=== PATIENT | female | born 1945 | race Caucasian/White ===

== ENCOUNTER 2017-03-19 17:28 | Inpatient (IN) ==
[2017-03-19] MEDS ORDERED: MEFOXIN 2 GM/NS 2 GM/50 ML IVPB IV ONE (22:00)
--- NOTE | 2017-03-19 22:14 | HISTORY AND PHYSICAL ---
ADMITTING DIAGNOSIS: Right diaphragmatic hernia. HISTORY OF PRESENT ILLNESS: A 71-year-old female with a past medical history include hypertension, chronic anxiety, chronic lower back pain, Crohn's disease, insomnia, osteoarthritis who had been at [facility] for several days with complaint of abdominal pain. She also had a persistent cough. She had difficulty with bowel movements and felt that she might have a bowel obstruction. During her workup, she did have a CT scan that showed a right diaphragmatic hernia that contained potentially incarcerated colon. Given this, it was felt the patient should be transferred to [facility]. I did discuss her care with Dr. Miguel schafer who had been taking care of the patient. He felt as though she was a reasonable surgical candidate and that she could be safely transferred for surgical intervention. The patient right now is feeling better, but having shortness of breath. PAST MEDICAL HISTORY: Hypertension, chronic anxiety, chronic lower back pain, Crohn's disease, insomnia, osteoarthritis. PAST SURGICAL HISTORY: Left ovary removal. Pelvic repair with mesh in the bladder x2. Lumbar fusion. CURRENT MEDICATIONS: Reviewed from her note from another facility. It is noted that she is on prednisone. ALLERGIES: Sulfa, morphine and latex. SOCIAL HISTORY: Nonsmoker. FAMILY HISTORY: Positive for stroke and pneumonia. REVIEW OF SYSTEMS: A full 10 point review of systems obtained, negative except as specified in HPI. PHYSICAL EXAMINATION: VITAL SIGNS: Patient is currently afebrile. Her vital signs have been stable. She is on a face mask, but saturations 99%. GENERAL: No acute distress. female, looks stated age. HEENT: Normocephalic, atraumatic. Pupils equal, round, reactive to light. Mucous membranes moist. Oropharynx benign. NECK: Supple. Trachea midline. CARDIOVASCULAR: Regular rate and rhythm. LUNGS: Some decreased breath sounds on the right. ABDOMEN: Soft, nontender, nondistended. No skin changes. EXTREMITIES: Moves all extremities. SKIN: No signs of jaundice. VASCULAR: All extremities perfused. NEUROLOGIC: Grossly intact. LABORATORY: From her hospital stay at the other facility reviewed. CT scan from the other facility reviewed and noted above. ASSESSMENT/PLAN: A 71-year-old female with right diaphragmatic hernia. 1. Multiple medical comorbidities. At this time, we will watch her closely. I will consult the hospitalist for medical management. 2. Right diaphragmatic hernia. At this time, given her respiratory status, we will plan for surgical intervention. Discussed with patient the risks, benefits, alternatives for the procedure. Discussed with her that we would have to do an open procedure to repair the diaphragm, that there is a chance she might need a chest tube on the right side. Discussed the potential for her to remain intubated postoperatively. All questions were answered. She voiced understanding and wished to proceed with the procedure. She does once off to her bath steward. cc: Gabriel Anna MD
[2017-03-19] MEDS ORDERED: MARCAINE 0.25% PF ONE (23:15)
[2017-03-19] MEDS ORDERED: SODIUM CHLORIDE 0.9% 10 ML ONE (23:15)
[2017-03-19] MEDS ORDERED: EXPAREL 1.3% ONE (23:15)
[2017-03-19] MEDS ORDERED: SOLU-CORTEF ONE (23:17)
[2017-03-19] MEDS ORDERED: PEPCID ONE (23:17)
[2017-03-20 00:43] LABS: URINE SOURCE CATH
[2017-03-20 00:53] LABS: BILIRUBIN URINE NEGATIVE (NEGATIVE); BLOOD URINE TRACE (NEGATIVE); COLOR STRAW; GLUCOSE URINE 150 mg/dL (NEGATIVE); LEUKOCYTES URINE NEGATIVE (NEGATIVE); NITRITE URINE NEGATIVE (NEGATIVE); PH URINE 6.5; PROTEIN URINE TRACE mg/dL (NEGATIVE); SP GRAVITY URINE 1.011; TURBIDITY URINE CLEAR (CLEAR); UROBILINOGEN URINE NORMAL (NORMAL)
[2017-03-20 00:54] LABS: URINE MICRO REVIEW NEEDED? YES
[2017-03-20 00:59] LABS: UR EPITHELIAL CELLS <10 /HPF (<10); URINE BACTERIA NEGATIVE /HPF; URINE WBC <10 /HPF (<10)
[2017-03-20] MEDS ORDERED: DIPRIVAN 1% 1,000 MG/100 ML BOTTLE ONE ×2 (01:30)
[2017-03-20] MEDS: DIPRIVAN 1% 1,000 MG/100 ML BOTTLE IV SCH ×3 (01:45→09:38)
[2017-03-20] MEDS ORDERED: VERSED ONE (01:53)
[2017-03-20] MEDS ORDERED: KETAMINE (DOSE) ONE (01:54)
[2017-03-20 03:17] LABS: BASO% 0.4 % (0.0-0.8); HEMATOCRIT 39.4 % (37.0-47.0); HEMOGLOBIN 13.1 g/dL (12.0-16.0); IMM GRAN# 0.16 X1000 (0.0-0.04); IMM GRAN% 0.8 % (0.0-0.5); LYMPH# 0.74 X1000 (1.2-3.4); LYMPH% 3.6 % (20.5-51.1); MANUAL DIFF NEEDED? YES; MCHC 33.2 g/dL (33-37); MCV 90.4 FL (81-99); MONO# 3.33 X1000 (0.11-0.59); MONO% 16.2 % (1.7-9.3); MPV 8.9 FL (7.4-10.4); PLT 397 X1000 (130-400); RBC 4.36 XMIL (4.2-5.4)
[2017-03-20 03:41] LABS: LYMPHS 2 % (21-51); MONO 6 % (1-9)
--- NOTE | 2017-03-20 03:43 | OPERATIVE NOTE ---
PROCEDURE DATE: 03/19/2017 PREOPERATIVE DIAGNOSES: 1. Incarcerated, strangulated right diaphragmatic hernia. 2. Right pleural effusion. POSTOPERATIVE DIAGNOSES: 1. Incarcerated, strangulated right diaphragmatic hernia. 2. Right pleural effusion. PROCEDURE PERFORMED: 1. Exploratory laparotomy. 2. Reduction of diaphragmatic hernia. 3. Colorrhaphy. 4. Primary repair of diaphragmatic hernia (incarcerated, strangulated). 5. Partial omentectomy. 6. Right chest tube placement (24-Togolese). SURGEON: Dr. Gabriel Anna. EAR MUFF ASSEMBLER: None. ANESTHESIA: General endotracheal. ESTIMATED BLOOD LOSS: 25 mL. SPECIMENS REMOVED: Omentum. DRAINS: A 24-Togolese chest tube to the right chest. FINDINGS: There was a 3 cm defect that contained the hepatic flexure of the colon. There was strangulated omentum that was noted in the hernia but the bowel itself was viable except for 1 little small edge which had a small serosal injury which was repaired with a colorrhaphy. BRIEF HISTORY: The patient is a 71-year-old, female presenting with abdominal pain and right shoulder pain, and a bowel obstruction. She was evaluated by her primary care physician, had a CT scan that showed this hernia. She was transferred over to [facility] for definitive care. Evaluated the patient. I felt that repair would be best. She did have worsening respiratory status. [place] again that operative repair would be the best thing for the patient. The risks, benefits, and alternatives were discussed. All questions were answered. DESCRIPTION OF PROCEDURE: After informed consent was obtained, the patient was brought to the operative theatre, transferred to the operating table, and placed in the supine position. General endotracheal anesthesia was then performed without complication. A formal time- out was then performed, confirming patient, date, and procedure. All were in agreement. The abdomen and chest were both prepped out. After we did this, we made a standard upper midline incision to encounter the abdomen. Upon entering the abdomen, we found the hernia and the diaphragm on the right side. The colon itself was traveling anterior to the liver to be incorporated this hernia. It was significantly stuck in this area. We had to increase the size of the hernia on either side to allow reduction of the contents. Once we reduced it, we noticed that there was omentum in the area that was strangulated. We elected to remove this with electrocautery. We did have to take down the triangular ligament and the falciform ligament to accommodate the reduction. There was a significant amount of serosanguineous fluid that was evacuated from the chest. We were able to feel the heart and the lung. We examined the colon. There was a small area with bruising on the serosa that we elected to do a colorrhaphy on. We did this with interrupted silk stitches with good results. There bowel itself appeared to be very viable. Again, the only area that was strangulated with the omentum which we resected. We irrigated the abdomen copiously. We turned our attention to closing the defect. We used 0 PDS sutures and closed it with horizontal mattresses. We had a good reapproximation. We also placed the liver abutting up against this area to heal with closure. We placed the colon in an area not let it to be involved again in a recurrence. We irrigated the abdomen copiously. Closed the fascia with a running loop PDS and neva for the skin. We then turned our attention to the right chest which had been previously marked with the patient in preoperative holding. In the anterior axillary line at the 5th intercostal space, we made a small incision. Carried it to the subcutaneous tissue. We entered into the chest above the 5th intercostal rib. We encountered some fluid. We placed a 24-Togolese chest tube. We directed as best we could posteriorly and anteriorly. We drained at least 200 of fluid out immediately once placing it to suction. We secured it in place with silk stitches on either side, placed a sterile dressing. Given the timing of the procedure, the patient's overall clinical status, we elected to keep the patient intubated and transferred her to the ICU. Postoperatively, we will keep the chest tube to suction overnight, get a chest x -ray, and evaluate her pulmonary status in the morning for potential extubation. cc: MD ELLY Randolph
[2017-03-20 03:59] LABS: AGAP 23; BUN 7 mg/dL (8-22); CHLORIDE 91 mmol/L (98-107); COSMO 266; POTASSIUM 3.3 mmol/L (3.5-5.1); SODIUM 132 mmol/L (136-145); TCO2 18 mmol/L (25-35)
[2017-03-20] MEDS: LR 1,000 ML IV SCH ×2 (04:23→16:21)
[2017-03-20 04:47] LABS: ALLEN TEST YES; BE -0.7 mmoll (-3.0-3.0); BLOOD TYPE ARTERIAL; METHB 0.5 % (0.0-1.5); O2(CT) 20.6 mL/dL (15.0-23.0); PCO2(98.6) 40 mmHg (35-45); PO2(98.6) 234 mmHg (60-100); SAMPLE BLOOD; SAO2 97.8 % (95.0-100.0); SRATE 9 BPM; THB 14.7 g/dL (11.5-17.4); TVOL 500 mL; pH(98.6) 7.39 (7.35-7.45)
[2017-03-20 04:50] LABS: MODALITY VENTILATOR
[2017-03-20 06:17] LABS: DRAW SITE R RADIAL
--- NOTE | 2017-03-20 07:07 | PROGRESS NOTE ---
DATE: 03/20/2017 SUBJECTIVE: Patient doing okay since the operation. No major issues reported by the nursing staff. OBJECTIVE: Vital Signs: Patient is currently afebrile. Her vital signs have been stable. She is still on the ventilator. General Examination: Sedated, on the ventilator. Cardiovascular: Regular rate and rhythm. Lungs: Referred airway noises but she does have airways on the right side. Abdomen: Soft and nondistended. Appropriately dressed with a dry dressing in place. Air sounds on the right side of the abdomen. Soft, nondistended. Dressing in place. Laboratory: White blood cell count is 20, hematocrit 39. ABG reviewed. Electrolytes reviewed. Chest x-ray from earlier this morning reviewed. ASSESSMENT/PLAN: A 71-year-old, female, status post repair of incarcerated strangulated diaphragmatic hernia on the right. 1. Postoperative state. At this time, patient is on the ventilator with a chest tube on the right side. Dr. Badillo has been consulted for ventilator management. I suspect that if she does not get extubated today, we will need to place a nasogastric tube to decompress her stomach. If she is extubated, we can hold off. 2. History of Crohn's. At this time, the patient to get a stress dose of steroids. She will likely need to continue steroids but we will defer to Dr. Bowens who is going to see her, who has been consulted to see her today and the hospitalist service. 3. Multiple medical comorbidities, currently being managed by the hospitalist service. 4. At this time, I think the patient is doing relatively well all things considered. I will help keep the chest tube in place to decompress her right chest after the procedure. We are going to monitor her closely. If she has any changes, we may need to consider increasing her steroid dose. cc: MD ELLY Randolph
--- NOTE | 2017-03-20 07:25 | Diag Imaging Result Doc PS360 ---
EXAM: CHEST-PORTABLE HISTORY: post -op, vent, chest tube TECHNIQUE: AP supine portable at 0150 COMMENT: There is atelectasis in the left upper lobe and to lesser extent in the medial right base which was not present on 06/10/2015. There is a chest tube on the right and an endotracheal tube with its tip slightly below the thoracic inlet. There is no evidence of pneumothorax or significant pleural fluid collection. IMPRESSION: Left upper lobe and right lower lobe atelectasis. Electronically signed by Nitesh Lyons 03/20/2017 7:22 AM
[2017-03-20 08:01] LABS: AGAP 17; ALBUMIN 3.1 g/dL (3.5-5.0); ALKALINE PHOSPHATASE 73 U/L (32-104); BUN 8 mg/dL (8-22); CALCIUM 7.4 mg/dL (8.8-10.2); CHLORIDE 94 mmol/L (98-107); COSMO 269; GOT 57 U/L (10-30); GPT 28 U/L (10-36); HEMATOCRIT 33.1 % (37.0-47.0); HEMOGLOBIN 10.9 g/dL (12.0-16.0); MAGNESIUM 1.7 mg/dL (1.5-2.7); MCH 29.4 PG (27-31); MCHC 32.9 g/dL (33-37); MCV 89.2 FL (81-99); MPV 9.2 FL (7.4-10.4); POTASSIUM 2.9 mmol/L (3.5-5.1); RBC 3.71 XMIL (4.2-5.4); SODIUM 134 mmol/L (136-145); TCO2 23 mmol/L (25-35)
[2017-03-20] MEDS: SOLU-CORTEF IV SCH ×2 (08:17→16:22)
[2017-03-20] MEDS: PEPCID IV SCH ×2 (08:17→20:47)
[2017-03-20] MEDS: SODIUM CHLORIDE 0.9% 10 ML ONE (08:18)
[2017-03-20] MEDS: DILAUDID IV PRN ×5 (08:19→22:32)
[2017-03-20] MEDS ORDERED: POTASSIUM PHOSPHATE 30 MMOL in NS 250 ML IV ONE (09:30)
[2017-03-20] MEDS ORDERED: ATIVAN IV PRN (10:00)
[2017-03-20] MEDS ORDERED: XYLOCAINE-MPF 2% ONE (10:17)
[2017-03-20] MEDS ORDERED: NEOSTIGMINE ONE (10:17)
[2017-03-20] MEDS ORDERED: OFIRMEV 1000 MG/ISOTONIC SOLN 1,000 MG/100 ML BOTTLE ONE (10:17)
[2017-03-20] MEDS ORDERED: ROBINUL ONE (10:17)
[2017-03-20] MEDS ORDERED: ZOFRAN ONE (10:17)
[2017-03-20] MEDS ORDERED: VENTOLIN HFA ONE (10:17)
[2017-03-20] MEDS ORDERED: SODIUM CHLORIDE 0.9% 40 ML ONE (10:17)
[2017-03-20] MEDS ORDERED: DECADRON ONE (10:17)
[2017-03-20] MEDS ORDERED: QUELICIN (DOSE) ONE (10:17)
[2017-03-20] MEDS ORDERED: NORCURON ONE (10:17)
[2017-03-20] MEDS ORDERED: NEO-SYNEPHRINE ONE (10:17)
[2017-03-20] MEDS ORDERED: ZEMURON ONE (10:17)
[2017-03-20] MEDS ORDERED: NS 500 ML ONE (10:17)
[2017-03-20] MEDS ORDERED: SOLU-CORTEF ONE (10:17)
[2017-03-20] MEDS ORDERED: LR 2,000 ML ONE (10:17)
[2017-03-20] MEDS: ZOSYN 3.375 GM/NS 3.375 GM/50 ML IVPB IV SCH ×3 (10:17→21:49)
[2017-03-20 10:48] LABS: ALLEN TEST NO; BE 3.5 mmoll (-3.0-3.0); BLOOD TYPE ARTERIAL; DRAW SITE R BRACHIAL; METHB 0.8 % (0.0-1.5); O2(CT) 15.3 mL/dL (15.0-23.0); PCO2(98.6) 29 mmHg (35-45); PO2(98.6) 118 mmHg (60-100); SAMPLE BLOOD; SAO2 97.1 % (95.0-100.0); THB 11.2 g/dL (11.5-17.4); pH(98.6) 7.55 (7.35-7.45)
[2017-03-20 10:50] LABS: MODALITY VENTILATOR
[2017-03-20] MEDS: HEPARIN SUBQ SCH ×2 (12:19→20:06)
--- NOTE | 2017-03-20 14:32 | CONSULTATION ---
DATE OF CONSULTATION: 03/20/2017 CONSULTING PHYSICIAN: Dr. Gabriel Anna. CONSULTING REASON: Medical management. HISTORY OF PRESENT ILLNESS: Mrs. Jang is a 71-year-old female with a history of hypertension, Crohn disease, chronic pain and insomnia who was transferred from [facility] with multiple days of abdominal pain, ultimately found to have a incarcerated diaphragmatic hernia. She was transferred to our facility for surgical treatment. Dr. Anna performed an exploratory laparotomy with corraphy early this morning. She is currently intubated in the ICU resting comfortably in no distress. She was also noted to have a large pleural effusion requiring chest tube insertion. Labs this morning did show some leukocytosis, but she is is on steroids at home. We have been asked to follow along for medical management. PAST MEDICAL HISTORY: 1. Anxiety. 2. Chronic pain. 3. Crohn disease. 4. Insomnia. 5. Osteoarthritis. 6. Hypertension. 7. Chronic steroid use. PAST SURGICAL HISTORY: Left oophorectomy, lumbar spine fusion, pelvic repair with mesh. CURRENT MEDICATIONS: Reviewed please see MAR. ALLERGIES: To sulfa, morphine and latex. SOCIAL HISTORY: No history of tobacco, alcohol or drug use. FAMILY HISTORY: Noncontributory. REVIEW OF SYSTEMS: Unable to obtain secondary to neurologic status (intubated and sedated). PHYSICAL EXAMINATION: Vital Signs: Blood pressure is 119/62, heart rate 77, respiratory rate 13, O2 saturation 100% on mechanical ventilation, temperature 97.3 degrees. General : A well- developed, well-nourished, female lying in hospital bed in no acute distress, intubated and sedated. Neurologic: The patient is intubated and sedated on propofol. HEENT: Head is atraumatic. Her pupils are equal, round, reactive to light. Oral mucosa is moist. Trachea is midline. No JVD. Chest: Diminished in the right lung base otherwise clear to auscultation bilaterally. CV: Regular rate and rhythm. S1-S2 is noted. No murmurs, gallops, clicks, rubs. GI: Midline incision with occlusive dressing that is clean, dry and intact. Bowel sounds are hypoactive, belly is slightly distended but soft. Extremities: No edema, clubbing or cyanosis. Pulses diminished but palpable bilaterally. DIAGNOSTIC DATA: WBC 18.9, hemoglobin 10.9, hematocrit 33.1, platelet count 450 ,000. Sodium 134, potassium 2.9, chloride 94, CO2 23, anion gap 17, BUN 8, creatinine 0.4, glucose 150, calcium 7.4, phosphorus 1.8, magnesium 1.7, AST 57, ALT 28, alkaline phosphatase 73, protein 6, albumin 3.1, lactate 1. ASSESSMENT AND PLAN: 1. Incarcerated diaphragmatic hernia status post repair: Per Dr. Anna and his team. Continue aggressive pulmonary toilet, DVT prophylaxis and pain control. 2. Pleural effusion status post chest tube: Currently stable, Dr. Badillo from pulmonary has been consulted. We will order daily ABGs and chest x-rays, currently her ABG is stable. She should be extubated soon. 3. Respiratory failure on ventilation: Per Dr. Badillo, continue breathing treatments and aggressive pulmonary toilet. 4. Leukocytosis: Likely reactive secondary to steroids. However, given intraabdominal surgery will obtain blood cultures and start Zosyn. 5. Hypokalemia/phosphatemia: Replace with Kphos and monitor. 6. H/o Crohn's Disease: We will add stress dosing of steroids as she is on chronic steroids at home. 6. Anxiety: Will continue her benzodiazepines. 7. Hypertension: Chronic and stable, continue home medications. 8. Deep vein thrombosis prophylaxis per surgical team. Gastrointestinal prophylaxis with IV Protonix. We would like to thank you for this consultation. We will continue to follow along with you. Dictated by LAMONT Banegas for Franny Conrad MD cc: LAMONT Banegas MD Matthew L. Figh, MD [facility] HOSPITALCharlie
--- NOTE | 2017-03-20 14:34 | CONSULTATION ---
DATE OF CONSULTATION: 03/20/2017 REQUESTING PHYSICIAN: Dr. Gabriel Anna. REASON FOR CONSULTATION: Respiratory failure following surgical procedure. HISTORY OF PRESENT ILLNESS: Ms. Jang is a 71-year-old white female, nonsmoker by nursing intake, possible mild COPD with history of Crohn disease. The patient was admitted to an outside hospital with abdominal pain. CT scan suggested diaphragmatic hernia with incarcerated bowel. The patient was transferred to [facility] and underwent surgical intervention. A defect in the right hemidiaphragm was identified with an area of strangulated omentum and small area of colonic injury which was repaired. Small effusion was evacuated and a chest tube was placed during the procedure. PAST MEDICAL HISTORY: 1. Crohn's disease. 2. Dyslipidemia. 3. Depression. 4. Osteoarthritis. 5. History of multiple pelvic surgeries for prolapse. 6. Status post hysterectomy. 7. History of cervical spine fusion. 8. Anxiety disorder. SOCIAL HISTORY: No smoking reported on nursing intake sheet. FAMILY HISTORY: Positive for strokes. REVIEW OF SYSTEMS: Cannot be obtained. PHYSICAL EXAMINATION: General: Reveals a well-developed, well-nourished, white female, who appears her stated age on mechanical ventilation. Vital signs: Blood pressure 141/71, heart rate 90, respiration rate 14, oxygen saturation 99%. HEENT: Pupils are equal and reactive. Oropharynx is clear. Neck: Supple. Chest: Reveals coarse breath sounds in the right lung. Chest tube is in position. No leak identified. Left lung is clear. Cardiac: Regular rate. Normal S1, normal S2. Abdomen: Soft with midline surgical incision present. No significant drainage identified. Extremities: Reveal multiple angular deformity of the digits. No significant edema. LABORATORIES: Chest x-ray reveals atelectasis in the left upper lobe and right lower lobe. Arterial blood gas reveals a pH 7.39, pCO2 of 40, PO2 of 234, with an increase in Aa gradient at 358. White blood count 18.9 thousand, hemoglobin 10.9, platelet count 450,000. Chemistry: Sodium 134, potassium 2.9, chloride 94, bicarbonate 30, BUN 8, creatinine 0.4. Phosphorus is 1.8, magnesium 1.7. IMPRESSION: A 71-year-old with possible mild chronic obstructive pulmonary disease, Crohn's disease with steroid use, who was transferred to this hospital with an incarcerated hernia. Patient's arterial oxygen is well over 200, but she does have an increase in the Aa gradient consistent with hypoxemic respiratory failure following surgery. The patient also has evidence of atelectasis. Patient had pleural effusion and chest tube has been placed. RECOMMENDATIONS: 1. Spontaneous breathing trial in now to evaluate potential for extubation. 2. Agree with pain medications. These will be required to allow appropriate bronchial hygiene/incentive spirometry/deep breathing and cough. 3. Add bronchodilators for bronchial hygiene. 4. Continue gastric acid suppression as you are doing. 5. Recommend initiation of steroid weaning to promote wound healing as soon as possible. 6. Additional recommendations pending hospital course. cc: MD Gabriel Thompson MD
[2017-03-20] MEDS: DUONEB (A & A) INH SCH ×2 (15:52→21:05)
[2017-03-20] MEDS ORDERED: SODIUM CHLORIDE 0.9% 10 ML ONE (20:44)
[2017-03-21] MEDS: SODIUM CHLORIDE 0.9% 10 ML ONE (00:08)
[2017-03-21] MEDS: SOLU-CORTEF IV SCH ×3 (00:08→20:47)
[2017-03-21] MEDS: OFIRMEV 1000 MG/ISOTONIC SOLN 1,000 MG/100 ML BOTTLE IV PRN ×2 (00:08→21:59)
[2017-03-21] MEDS: DILAUDID IV PRN ×6 (01:55→21:59)
[2017-03-21] MEDS: DUONEB (A & A) INH SCH ×4 (03:38→22:55)
[2017-03-21] MEDS: HEPARIN SUBQ SCH ×3 (03:56→20:47)
[2017-03-21] MEDS: ZOSYN 3.375 GM/NS 3.375 GM/50 ML IVPB IV SCH ×4 (03:56→23:42)
[2017-03-21] MEDS: LR 1,000 ML IV SCH ×3 (03:56→17:16)
[2017-03-21 07:08] LABS: AGAP 18; ALBUMIN 2.9 g/dL (3.5-5.0); ALKALINE PHOSPHATASE 74 U/L (32-104); BASO% 0.1 % (0.0-0.8); BUN 6 mg/dL (8-22); CALCIUM 7.6 mg/dL (8.8-10.2); CHLORIDE 94 mmol/L (98-107); COSMO 273; GOT 41 U/L (10-30); GPT 24 U/L (10-36); HEMATOCRIT 32.2 % (37.0-47.0); HEMOGLOBIN 10.8 g/dL (12.0-16.0); LYMPH# 1.17 X1000 (1.2-3.4); LYMPH% 11.6 % (20.5-51.1); MANUAL DIFF NEEDED? YES; MCH 31.8 PG (27-31); MCHC 33.5 g/dL (33-37); MCV 94.7 FL (81-99); MONO# 2.02 X1000 (0.11-0.59); MPV 9.5 FL (7.4-10.4); NEUT% 68.3 % (42.2-75.2); PLT 412 X1000 (130-400); SODIUM 138 mmol/L (136-145); TCO2 26 mmol/L (25-35); TOTAL BILIRUBIN 0.25 mg/dL (0.20-1.00); TOTAL PROTEIN 6.3 g/dL (6.3-8.3)
--- NOTE | 2017-03-21 07:12 | PROGRESS NOTE ---
DATE: 03/21/2017 SUBJECTIVE: Patient doing well. She was extubated. No major issues reported by the nursing staff. She is tolerating extubation for almost 24 hours. OBJECTIVE: Vital Signs: Patient is currently afebrile. Her vital signs have been stable. General: No acute distress. Cardiovascular: Regular rate and rhythm. Lungs: Some coarse sounds but, otherwise, no increased labored breathing. Abdomen soft, nondistended, appropriately tender. Dressing in place. Chest tube in the left side without air leak, placed to water seal. LABORATORY: Currently pending. Chest x-ray reviewed with the official report reviewed. I not see a pneumothorax. ASSESSMENT AND PLAN: A 71-year-old female, status post repair of incarcerated strangulated diaphragmatic hernia on the right. 1. Postoperative state at this time. She has been extubated. I will keep her chest tube to water seal for right now. She does have a slightly elevated hemidiaphragm on the right which may be related to the repair itself. We will monitor. She does not seem to have a significant amount of atelectasis on the right side that I can see that is causing an obstructive-like pattern with pneumonia. We will just keep in the chest tube to water seal for another 24 hours and potentially pull it. 2. History of Crohn's. At this point, the patient has been placed on steroids. We will monitor closely. Water Resource Manager has been consulted. 3. Multiple medical comorbidities currently being managed by the hospitalist service. At this time, I think the patient can likely be transferred up to the floor if okay with other teams. We will follow up with their recommendations. cc: Gabriel Anna MD
--- NOTE | 2017-03-21 07:29 | Diag Imaging Result Doc PS360 ---
EXAM: CHEST-PORTABLE INDICATION: dyspnea TECHNIQUE: One view COMPARISON: 03/20/2017 FINDINGS: The right chest tube is in stable position. There has been interval extubation. Atelectasis in the left upper lobe has improved during the interval. Atelectasis at the medial right lung base is stable to marginally worse. Otherwise, no new consolidations are identified. Cardiac silhouette is stable. IMPRESSION: 1.Interval extubation. 2.Interval improvement in left upper lobe atelectasis and stable to marginal worsening of atelectasis at the medial right lung base. Electronically signed by Genaro Georges 03/21/2017 7:27 AM
[2017-03-21 08:05] LABS: LYMPHS 10 % (21-51); MONO 17 % (1-9)
[2017-03-21] MEDS: PEPCID IV SCH ×2 (08:18→20:48)
[2017-03-21] MEDS ORDERED: SODIUM PHOSPHATE 40 MMOL in NS 250 ML IV ONE (09:00)
[2017-03-21] MEDS ORDERED: POTASSIUM CHLORIDE 60 MEQ in NS 500 ML IV ONE ×2 (09:00→19:15)
--- NOTE | 2017-03-21 10:40 | CONSULTATION ---
DATE OF CONSULTATION: 03/20/2017 . REASON FOR CONSULTATION: History of Crohn's. HISTORY OF PRESENT ILLNESS: This is a 71-year-old, white female, who had reported to [facility] with complaints of abdominal pain and cough. She had problems with bowel movements. There was concern of bowel obstruction. She had a CT scan that showed a right diaphragmatic hernia that contained potential incarcerated colon. The patient was transferred to [facility] and had surgery on 03/20/2017 during the night. Surgery was performed by Dr. Anna. Procedure performed: Exploratory laparotomy, reduction of diaphragmatic hernia, colography, repair of diaphragmatic incarcerated strangulated hernia, partial omentectomy, and right chest tube placement. At the time of my evaluation, the patient has just been extubated. She is talking. She is in no acute distress. Patient does have a history of Crohn's disease but has not been on medication for her Crohn's for some time. She was last seen in our office in 10/2015. She had a colonoscopy last in 2013 that showed mild colitis in the colon. Her last EGD was in 2013 that showed mild gastritis. PAST MEDICAL HISTORY: Hypertension, anxiety, chronic back pain, Crohn's disease, osteoarthritis, insomnia. PAST SURGICAL HISTORY: 1. Left oophorectomy. Pelvic repair with mesh. Lumbar fusion. ALLERGIES: Lactose causing diarrhea, morphine causing itching, sulfa causes a rash, codeine itching. HOME MEDICATIONS: 1. Fluticasone inhaler twice daily. 2. Vitamin D 50,000 units every 7 days. 3. Elavil 100 mg every night. 4. Biotin 1000 mcg 3 times a day. 5. Lactaid 1 as needed. 6. Imodium as needed. 7. Colace 100 mg twice daily as needed. 8. Acetaminophen 650 mg every 6 hours as needed. 9. Multivitamin daily. 10. Fluticasone nasal spray daily. 11. Potassium 10 mEq twice a day. 12. Lisinopril 10 mg daily. 13. Norvasc 5 mg daily. 14. Estradiol 1 mg daily. 15. Lexapro 10 mg every night. 16. Sertraline 10 mg as needed. 17. Benzoate 1 capsule every 4 hours as needed. 18. Benadryl 1 tablet as needed. 19. Mobic 7.5 mg twice daily. 20. Antivert 12.5 mg 3 times a day as needed. 21. Lidoderm patch, 1 daily. 22. Inderal 10 mg twice daily. SOCIAL HISTORY: No reported tobacco use. FAMILY HISTORY: History of stroke. History of ammonia. REVIEW OF SYSTEMS: Per HPI. PHYSICAL EXAMINATION: Vital Signs: Temperature 97.6 degrees, pulse 102, respirations 21, blood pressure 142/70. Generally, the patient is awake. She has just been extubated. She is on O2 by mask and tolerating well. Respiratory with coarse breath sounds. Chest tube on the right side. Cardiovascular: Regular rate and rhythm. Abdomen soft. She has a midline dressing from surgery last night. No significant drainage noted on the dressing. LABORATORY RESULTS: 03/20/2017: WBC 18.90, hemoglobin 10.9, hematocrit 33.1, MCV 89.2. Chemistry: Sodium 134, potassium 2.9, chloride 94, CO2 of 23. BUN 8, creatinine 0.4. ASSESSMENT AND PLAN: 1. Recent repair of incarcerated diaphragmatic hernia. 2. Pleural effusion with chest tube in place. 3. Recent ventilatory extubation. Dr. Badillo is following. 4. History of Crohn's disease. The patient has been started on steroids while in the hospital. She has not been on any maintenance medications for her Crohn's in some time. We will continue to follow and further plans will be made as needed through her hospital course. Thank you for this consultation. I have discussed this case with Dr. Bowens. Dictated by LAMONT Eid for Colin Bowens MD cc: LAMONT Chahal MD Matthew L. Figh, MD
--- NOTE | 2017-03-21 12:37 | PROGRESS NOTE ---
DATE: 03/21/2017 SUBJECTIVE: Patient states she is feeling better. She was extubated yesterday. She denies dyspnea or shortness of breath. She is tolerating ice chips at present. OBJECTIVE: Vital Signs: Temperature 98.2 degrees, pulse 92, respirations 15, blood pressure 151/76. Abdomen: Dressing in place. Chest tube to right chest. Abdominal dressing intact with only a very small amount of drainage noted. LABORATORY: Hematology: White count 10.12, hemoglobin 10.8, hematocrit 32.2, MCV 94.7, platelets 412,000. Chemistry: Sodium 138, potassium 3.0, chloride 94, CO2 of 26, BUN 6, creatinine 0.4, glucose 100, total bilirubin 0.25, AST 41, ALT 24, and alkaline phosphatase 74. ASSESSMENT: 1. Status post abdominal surgery for incarcerated hernia. Continue to follow with Dr. Anna. 2. History of Crohn's. Patient states she has not been on any Crohn medication for over 6 months or more. At 1 point, she was on Entocort and Lialda. She is currently receiving Solu-Cortef while in the hospital. As far as her Crohn's, she should not need steriods at this time. We will continue to follow and further plans will be made as needed. PLANS: Further plans will be made as needed. I have discussed this case with Dr. Bowens. Dictated by LAMONT Eid for Colin Bowens MD cc: LAMONT Chahal MD Matthew L. Figh, MD MTDD
--- NOTE | 2017-03-21 15:57 | PROGRESS NOTE ---
DATE: 03/21/2017 SUBJECTIVE: The patient was extubated yesterday and is doing well this morning. No acute events noted overnight. OBJECTIVE: Vital Signs: Temperature 98.4 degrees, blood pressure 141/111, heart rate 101, respiration is 19, O2 saturations 93% on 2 L nasal cannula. General: This is an elderly female, lying in bed, in no acute distress. Head: Normocephalic, atraumatic. Heart: S1, S2. Normal. Regular rate and rhythm. Lungs: Clear to auscultation bilaterally. Abdomen: Positive bowel sounds. Soft, nontender, nondistended. Extremities: No edema. No cyanosis. No calf tenderness. Neurologic: The patient is alert and oriented x3. LABS: White blood cell count 10, hemoglobin 10, hematocrit 32, platelets 412, 000. Sodium 138, potassium 3, chloride 94, CO2 26, BUN 6, creatinine 0.4, glucose 100, phosphorus 1.5, calcium 7.6, AST 41 ALT 24. ASSESSMENT AND PLAN: 1. Acute respiratory failure status post extubation. Continue with pulmonary toiletry and supplemental oxygen. 2. Exploratory laparotomy with primary repair of diaphragmatic hernia and partial omentectomy. Management as per Dr. Anna. 3. Leukocytosis. Improved. Continue on Zosyn. 4. History of Crohn's, on chronic steroid therapy. The patient is currently on hydrocortisone. Will start weaning the IV steroid dosage. 5. Hypertension. Continue to monitor closely. We will order p.r.n. labetalol. 6. Gastrointestinal prophylaxis. Continue on IV Protonix. 7. Deep vein thrombosis prophylaxis. Continue on heparin 5000 units subcutaneous every 8 hours. The patient is stable for transfer to the surgical floor. cc: MD Gabriel Toscano MD MTDD
[2017-03-21 16:35] LABS: POTASSIUM 2.9 mmol/L (3.5-5.1)
[2017-03-21] MEDS ORDERED: STERILE WATER INJ. ONE (17:04)
[2017-03-21] MEDS ORDERED: SODIUM PHOSPHATE 10 MMOL in NS 250 ML IV ONE (20:00)
[2017-03-21] MEDS: INDERAL PO SCH (20:48)
[2017-03-21] MEDS: ELAVIL PO SCH (20:50)
[2017-03-22] MEDS: LR 1,000 ML IV SCH ×3 (02:22→09:13)
[2017-03-22] MEDS: DUONEB (A & A) INH SCH ×4 (03:03→22:22)
[2017-03-22] MEDS: HEPARIN SUBQ SCH ×3 (05:13→20:25)
[2017-03-22] MEDS: ZOSYN 3.375 GM/NS 3.375 GM/50 ML IVPB IV SCH ×4 (05:13→21:40)
[2017-03-22] MEDS: DILAUDID IV PRN ×4 (05:16→21:34)
[2017-03-22] MEDS ORDERED: ANTIVERT PO PRN (05:56)
[2017-03-22] MEDS ORDERED: BENADRYL PO PRN (05:56)
[2017-03-22] MEDS ORDERED: TESSALON PO PRN (05:56)
[2017-03-22] MEDS ORDERED: ZYRTEC PO PRN (05:56)
[2017-03-22] MEDS ORDERED: COLACE PO PRN (05:56)
[2017-03-22 05:59] LABS: MANUAL DIFF NEEDED? NO
[2017-03-22 06:07] LABS: BASO% 0.2 % (0.0-0.8); EOS# 0.01 X1000 (0.0-0.7); EOS% 0.1 % (0.0-10.0); HEMATOCRIT 34.1 % (37.0-47.0); IMM GRAN# 0.27 X1000 (0.0-0.04); IMM GRAN% 2.2 % (0.0-0.5); LYMPH# 2.57 X1000 (1.2-3.4); LYMPH% 21.3 % (20.5-51.1); MCH 28.9 PG (27-31); MCHC 32.3 g/dL (33-37); MCV 89.5 FL (81-99); MONO# 1.69 X1000 (0.11-0.59); NEUT% 62.2 % (42.2-75.2); PLT 398 X1000 (130-400); RBC 3.81 XMIL (4.2-5.4)
--- NOTE | 2017-03-22 06:24 | PROGRESS NOTE ---
DATE: 03/22/2017 SUBJECTIVE: Patient moved from the ICU. She is doing well. Tolerated her sips of clears. Chest tubes had 60 mL recorded out. She is having no shortness of breath. OBJECTIVE: Vital Signs: Patient is currently afebrile. Her vital signs have been stable. General Examination: No acute distress. Cardiovascular: Regular rate and rhythm. Lungs: Some coarse sounds but otherwise no increased labored breathing. Chest: Chest tube fluctuates with respiratory and title volume. Abdomen: Soft, nondistended. Appropriately tender. Dressing in place. Laboratory: Currently pending. Chest x-ray from this morning pending. ASSESSMENT/PLAN: A 71-year-old , female, status post repair of incarcerated strangulated diaphragmatic hernia on the right. 1. Postoperative state. At this time, patient is doing well. We will follow up a chest x-ray to potentially remove her chest tube on the right side. I want the patient to get mobilized more. If she is able to mobilize more, we will discontinue her Barbour. Otherwise, we will need to keep the Barbour catheter because I do not think she can mobilize to the bedside commode enough. Physical therapy should help her with this. We will also start her on a clear liquid diet. 2. History of Crohn's. At this time, patient is on steroids. We will defer to the gastroenterology. 3. Multiple medical comorbidities, currently being managed by the hospitalist service. cc: Gabriel Anna MD
[2017-03-22 06:28] LABS: AGAP 13; ALBUMIN 3.1 g/dL (3.5-5.0); BUN 6 mg/dL (8-22); CALCIUM 7.8 mg/dL (8.8-10.2); CHLORIDE 94 mmol/L (98-107); COSMO 267; MAGNESIUM 1.7 mg/dL (1.5-2.7); SODIUM 135 mmol/L (136-145); TCO2 28 mmol/L (25-35)
[2017-03-22] MEDS ORDERED: STERILE WATER INJ. ONE ×2 (06:43→15:01)
[2017-03-22] MEDS ORDERED: PATIENT'S OWN MED PO PRN (06:45)
[2017-03-22] MEDS: VITAMIN D PO SCH (08:05)
[2017-03-22] MEDS: SOLU-CORTEF IV SCH ×2 (08:05→20:24)
--- NOTE | 2017-03-22 08:06 | Diag Imaging Result Doc PS360 ---
EXAM: CHEST-PORTABLE INDICATION: Follow up Repair of Diaphragm TECHNIQUE: One view COMPARISON: 03/21/2017 FINDINGS: The right chest tube is in stable position. There has been development of a fairly small pneumothorax at the right lung apex extending along the lateral periphery of the right lung. This is not seen on the previous study. It occupies approximately 15-20% of the right hemithorax. There has also been development of a small amount of subcutaneous emphysema overlying the right chest wall. The atelectasis at the right lung base and the left midlung zone that is essentially stable. Cardiac silhouette is stable. IMPRESSION: Interval development of right pneumothorax as described. The findings were discussed with Gabriel Anna MD at 03/22/2017 8:00 AM. Electronically signed by Genaro Georges 03/22/2017 8:04 AM
[2017-03-22] MEDS ORDERED: NORVASC PO SCH (09:00)
[2017-03-22] MEDS: BIOTIN PO SCH ×3 (09:06→16:16)
[2017-03-22] MEDS: INDERAL PO SCH ×2 (09:07→20:25)
[2017-03-22] MEDS: FLONASE NAS SCH (09:07)
[2017-03-22] MEDS: ESTRACE PO SCH (09:08)
[2017-03-22] MEDS: PRINIVIL PO SCH (09:08)
[2017-03-22] MEDS: KLOR-CON PO SCH ×2 (09:09→20:25)
[2017-03-22] MEDS: CENTRUM SILVER PO SCH (09:09)
[2017-03-22] MEDS: MOBIC PO SCH ×2 (09:10→20:26)
[2017-03-22] MEDS: PERIDEX MT SCH ×2 (09:10→20:26)
[2017-03-22] MEDS: PEPCID IV SCH ×2 (09:12→20:25)
[2017-03-22] MEDS: FLOVENT 110 MICROGM HFA INH SCH ×2 (09:14→09:25)
[2017-03-22] MEDS: LIDODERM TOP SCH ×3 (09:15→16:44)
[2017-03-22] MEDS ORDERED: SODIUM PHOSPHATE 40 MMOL in NS 250 ML IV ONE (11:00)
--- NOTE | 2017-03-22 13:51 | PROGRESS NOTE ---
DATE: 03/22/2017 SUBJECTIVE: Patient states she is doing well. She denies shortness of breath or dyspnea. She has O2 at 2 L. She continues to have her chest tube. She reports mild postoperative tenderness in the abdomen. OBJECTIVE: Vital signs: Temperature 97.4 degrees, pulse 86, respirations 16, blood pressure 172/82. Generally: Patient is awake, alert, no acute distress. HEENT: Normocephalic atraumatic. Pupils equal, round, reactive to light. Sclerae nonicteric. Cardiovascular: Regular rate and rhythm. Lung: Sounds essentially clear. Decreased right side, chest tube in place. Abdomen: With surgical dressing intact. Mild tenderness postoperatively. DIAGNOSTIC RESULTS/LABORATORY: Hematology: White count 12.08, hemoglobin 11.0 , hematocrit 34.1, MCV 89.5, platelet 398,000. Chemistry: Sodium 135, potassium 4.0, chloride 94 , CO2 28, BUN 6, creatinine 0.4, glucose 84. ASSESSMENT AND PLAN: 1. Incarcerated hernia status post surgery repair. 2. History of Crohn's. She has been in remission. Currently does not need steroids or medications for her Crohn's. We will continue to follow and we will also follow up with her as an outpatient. We will continue to be available while she is in the hospital as needed. Dictated by LAMONT Eid for Colin Bowens MD cc: LAMONT Chahal MD Matthew L. Figh, MD [facility]
--- NOTE | 2017-03-22 16:44 | PROGRESS NOTE ---
DATE: 03/22/2017 SUBJECTIVE: The patient is resting comfortably in bed. No acute events noted overnight. OBJECTIVE: Vital Signs: Temperature 97.9 degrees, blood pressure 191/113, respiration 16, O2 saturations 97% on 2 L nasal cannula. General: This is an elderly female, lying in bed, in no acute distress. Head: Normocephalic, atraumatic. Heart: S1, S2. Normal. Tachycardic. Lungs: Equal air entry bilaterally. The patient does have a right-sided chest tube in place. Abdomen: Positive bowel sounds. Soft, nontender, nondistended. Extremities: No edema. No cyanosis. No calf tenderness. Neurologic: The patient is alert and oriented x3. LABS: White blood cell count 12, hemoglobin 11, hematocrit 34, platelets 398, 000. Sodium 135, potassium 4, chloride 94, CO2 28, BUN 6, creatinine 0.4, glucose 84, phosphorus 1.9. ASSESSMENT AND PLAN: 1. Acute respiratory failure status post extubation. Resolved. 2. Exploratory laparotomy with repair of a diaphragmatic hernia and partial omentectomy. Management as per the general surgeon. 3. Right pneumothorax status post chest tube placement. Management as per General Surgery. 4. History of Crohn disease. We will continue to wean the patient's IV steroids and restart prednisone. 5. Hypertension. The patient's home medications have been restarted. We will adjust the patient's antihypertensives. 6. Gastrointestinal prophylaxis. Continue on IV Protonix. 7. Deep vein thrombosis prophylaxis. Continue on heparin. 8. Continue with physical therapy. 9. Disposition. The patient will be discharged to rehab once medically stable. cc: MD Gabriel Toscano MD [facility]ITAL[facility]
[2017-03-22] MEDS ORDERED: LASIX IV ONE (19:25)
[2017-03-22] MEDS ORDERED: TUMS PO ONE (19:59)
[2017-03-22] MEDS: LEXAPRO PO SCH (20:25)
[2017-03-22] MEDS: ELAVIL PO SCH (20:25)
[2017-03-22] MEDS: APRESOLINE PO SCH (20:25)
[2017-03-22] MEDS: NORVASC PO SCH (20:25)
[2017-03-22] MEDS: TYLENOL PO PRN (21:34)
[2017-03-23] MEDS: ELAVIL PO SCH ×2 (01:12→20:59)
[2017-03-23] MEDS: DILAUDID IV PRN ×5 (03:05→18:53)
[2017-03-23] MEDS: ZOSYN 3.375 GM/NS 3.375 GM/50 ML IVPB IV SCH ×4 (03:06→21:59)
[2017-03-23] MEDS: HEPARIN SUBQ SCH ×3 (03:11→20:59)
[2017-03-23] MEDS: DUONEB (A & A) INH SCH ×4 (03:30→22:24)
[2017-03-23] MEDS: APRESOLINE PO SCH ×3 (06:07→20:59)
--- NOTE | 2017-03-23 06:20 | PROGRESS NOTE ---
DATE: 03/23/2017 SUBJECTIVE: The patient is doing well. She did have a pneumothorax yesterday so I placed her chest tube back to suction. Her overall clinical status is stable. OBJECTIVE: Vital Signs: Patient is currently afebrile. Her vital signs are stable. General Examination: No acute distress. Cardiovascular: Regular rate and rhythm. Lungs: Some decreased breath sounds on the right but otherwise no increased labored breathing. Chest tube to suction. Abdomen: Soft, nondistended. Appropriately tender. Dressing in place. Laboratory Data: Chest x-ray from yesterday reviewed and noted as above. ASSESSMENT/PLAN: A 71-year-old, female status post repair of incarcerated strangulated diaphragmatic hernia on the right. 1. Postoperative state. At this time, she had reaccumulation her pneumothorax. I suspect that she has not completely sealed the diaphragmatic repair. I will keep her chest tube to suction for at least another 24 hours. Repeat a chest x-ray in the morning and monitor her closely. Continue to have her mobilize. I will advance her diet to full liquids and start her on oral pain medicine. 2. History of Crohn's. At this time, patient is on steroids. Will defer to gastroenterology. 3. Multiple medical comorbidities, currently being managed by the hospitalist service. cc: Gabriel Anna MD MTDD
[2017-03-23 07:03] LABS: MANUAL DIFF NEEDED? NO
[2017-03-23 07:09] LABS: BASO% 0.2 % (0.0-0.8); EOS# 0.11 X1000 (0.0-0.7); EOS% 0.8 % (0.0-10.0); HEMATOCRIT 36.9 % (37.0-47.0); HEMOGLOBIN 12.2 g/dL (12.0-16.0); LYMPH# 3.62 X1000 (1.2-3.4); LYMPH% 26.9 % (20.5-51.1); MCH 29.8 PG (27-31); MCHC 33.1 g/dL (33-37); MONO# 1.87 X1000 (0.11-0.59); MONO% 13.9 % (1.7-9.3); MPV 9.4 FL (7.4-10.4); NEUT% 55.2 % (42.2-75.2); PLT 519 X1000 (130-400)
--- NOTE | 2017-03-23 07:13 | Diag Imaging Result Doc PS360 ---
EXAM: CHEST-PORTABLE HISTORY: pneumothorax TECHNIQUE: AP portable at 0500 COMMENT: There is a chest tube on the right. There is increasing soft tissue emphysema in the right chest wall. There is subsegmental atelectasis in the right middle and lower lobe as well as the left lower lobe. Some improvement in atelectasis in the left upper lobe is present since 03/22/2017. IMPRESSION: Bilateral atelectasis. Increasing soft tissue emphysema on the right which may indicate a persistent leak. Electronically signed by Nitesh Lyons 03/23/2017 7:11 AM
[2017-03-23 07:46] LABS: AGAP 14; ALBUMIN 3.7 g/dL (3.5-5.0); BUN 8 mg/dL (8-22); CALCIUM 8.4 mg/dL (8.8-10.2); CHLORIDE 90 mmol/L (98-107); COSMO 275; POTASSIUM 4.1 mmol/L (3.5-5.1); SODIUM 138 mmol/L (136-145); TCO2 34 mmol/L (25-35)
[2017-03-23] MEDS: FLONASE NAS SCH (09:11)
[2017-03-23] MEDS: TYLENOL PO PRN (09:11)
[2017-03-23] MEDS: INDERAL PO SCH ×2 (09:12→20:59)
[2017-03-23] MEDS: PRINIVIL PO SCH (09:12)
[2017-03-23] MEDS: BIOTIN PO SCH ×3 (09:13→17:23)
[2017-03-23] MEDS: CENTRUM SILVER PO SCH (09:13)
[2017-03-23] MEDS: NORVASC PO SCH ×2 (09:13→20:59)
[2017-03-23] MEDS: KLOR-CON PO SCH ×2 (09:13→20:59)
[2017-03-23] MEDS: MOBIC PO SCH ×2 (09:14→20:59)
[2017-03-23] MEDS: SOLU-CORTEF IV SCH (09:14)
[2017-03-23] MEDS: PERIDEX MT SCH ×2 (09:14→21:00)
[2017-03-23] MEDS: FLOVENT 110 MICROGM HFA INH SCH (09:21)
[2017-03-23] MEDS: LIDODERM TOP SCH (09:22)
[2017-03-23] MEDS: PEPCID IV SCH ×2 (09:43→20:59)
[2017-03-23] MEDS: ESTRACE PO SCH (09:43)
--- NOTE | 2017-03-23 16:43 | PROGRESS NOTE ---
DATE: 03/23/2017 SUBJECTIVE: The patient is sitting up in a chair. She does complain of a productive cough. OBJECTIVE: Vital Signs: Temperature 97 degrees, blood pressure 150/106, respiration is 20, heart rate 83, O2 saturations 95% on 2 L nasal cannula. General: This is an elderly female, sitting up in a chair in no acute distress. Head: Normocephalic, atraumatic. Heart: S1, S2. Normal. Regular rate and rhythm. Lungs: Equal air entry bilaterally. No crackles, no rales. The patient does have a right-sided chest tube in place. Abdomen: Positive. Bowel sounds soft, nontender, nondistended. Extremities: No edema. No cyanosis. No calf tenderness. Neurologic: The patient is alert and oriented x3. LABS: White blood cell count 13, hemoglobin 12, hematocrit 36, platelets 519,000. Sodium 138, potassium 4, chloride 90, CO2 34, BUN 8, creatinine 0.7, glucose 115, magnesium 1.7. ASSESSMENT AND PLAN: 1. Acute respiratory failure status post extubation. Resolved. 2. Right pneumothorax status post chest tube placement. Management as per the general surgeon. 3. Volume overload. The patient has been receiving Lasix. Management as per the electronic parts designer. 4. Exploratory laparotomy with repair of a diaphragmatic hernia and partial omentectomy. Management as per the general surgeon. 5. Hypertension. Continue on the current antihypertensives. 6. History of Crohn disease. Will start the patient on prednisone and discontinue the hydrocortisone. 7. Gastrointestinal prophylaxis. Continue on IV Protonix. 8. Deep vein thrombosis prophylaxis. Continue on heparin. 9. Continue with physical therapy. cc: MD Gabriel Toscano MD
[2017-03-23] MEDS: LEXAPRO PO SCH (20:59)
[2017-03-24] MEDS: DUONEB (A & A) INH SCH ×4 (04:27→22:00)
[2017-03-24] MEDS: ZOSYN 3.375 GM/NS 3.375 GM/50 ML IVPB IV SCH ×2 (04:41→10:09)
[2017-03-24] MEDS: APRESOLINE PO SCH ×3 (04:41→21:28)
[2017-03-24] MEDS: HEPARIN SUBQ SCH ×3 (04:41→21:26)
[2017-03-24] MEDS: DILAUDID IV PRN ×3 (04:41→16:58)
[2017-03-24] MEDS ORDERED: ZOFRAN IV PRN (05:51)
[2017-03-24 06:29] LABS: MANUAL DIFF NEEDED? NO
--- NOTE | 2017-03-24 06:39 | PROGRESS NOTE ---
DATE: 03/24/2017 SUBJECTIVE: Patient is doing well. No major issues reported by the nursing staff. OBJECTIVE: Vital Signs: Patient is currently afebrile. Her vital signs are stable. General: No acute distress. Cardiovascular: Regular rate and rhythm. Lungs: Grossly clear. No increased labored breathing. Chest tube in place to suction. Abdomen: Soft. Nondistended. Appropriately tender. Dressing in place. DIAGNOSTIC: Chest x-ray is pending. ASSESSMENT AND PLAN: A 71-year-old female status post repair of incarcerated strangulated diaphragmatic hernia on the right. 1. Postoperative state at this time. Her chest tube is to suction still. On the x-ray yesterday, she had increase in subcutaneous emphysema. This may represent a leak. I would like to keep her chest tube release to suction for another 24 hours. Continue daily chest x- rays. I will have my partner, Dr. Shah, who is going to be seeing her this weekend and followup with her progress. If she does seem to make improvement, we could potentially transition her over to the chest tube to water seal in the next 24 hours. She is having a little bit of nausea so I would like to keep her on full liquids for right now and assess how she is doing. 2. History of Crohn's. At this time, patient is on steroids. We will refer to Gastroenterology. 3. Multiple medical comorbidities currently being managed by the hospitalist service. cc: Gabriel Anna MD
[2017-03-24 06:58] LABS: AGAP 19; ALBUMIN 3.3 g/dL (3.5-5.0); ALKALINE PHOSPHATASE 75 U/L (32-104); BASO% 0.4 % (0.0-0.8); BUN 10 mg/dL (8-22); CALCIUM 8.5 mg/dL (8.8-10.2); CHLORIDE 91 mmol/L (98-107); COSMO 267; EOS# 0.97 X1000 (0.0-0.7); EOS% 6.1 % (0.0-10.0); GOT 21 U/L (10-30); GPT 16 U/L (10-36); HEMATOCRIT 39.9 % (37.0-47.0); HEMOGLOBIN 13.3 g/dL (12.0-16.0); IMM GRAN# 0.53 X1000 (0.0-0.04); IMM GRAN% 3.4 % (0.0-0.5); LYMPH% 31.6 % (20.5-51.1); MCH 29.9 PG (27-31); MCHC 33.3 g/dL (33-37); MCV 89.7 FL (81-99); MONO# 2.24 X1000 (0.11-0.59); MONO% 14.2 % (1.7-9.3); MPV 9.6 FL (7.4-10.4); NEUT% 44.3 % (42.2-75.2); PLT 325 X1000 (130-400); POTASSIUM 3.3 mmol/L (3.5-5.1); RBC 4.45 XMIL (4.2-5.4); SODIUM 134 mmol/L (136-145); TCO2 24 mmol/L (25-35); TOTAL BILIRUBIN 0.45 mg/dL (0.20-1.00); TOTAL PROTEIN 6.5 g/dL (6.3-8.3)
--- NOTE | 2017-03-24 07:16 | Diag Imaging Result Doc PS360 ---
EXAM: CHEST-PORTABLE HISTORY: pneumothorax TECHNIQUE: AP portable chest at 0500 COMMENT: There is still a chest tube in the right hemithorax. The quantity of soft tissue emphysema in the right chest wall has diminished slightly since 03/23/2017. There continues to be atelectasis in the right middle lobe and right lower lobe. Left lung is better expanded than it was on the previous study. IMPRESSION: Improving soft tissue emphysema. Improved atelectasis left lower lobe. Electronically signed by Nitesh Lyons 03/24/2017 7:13 AM
[2017-03-24] MEDS: PERIDEX MT SCH ×2 (08:27→21:26)
[2017-03-24] MEDS: CENTRUM SILVER PO SCH (08:28)
[2017-03-24] MEDS: BIOTIN PO SCH ×3 (08:28→17:00)
[2017-03-24] MEDS: MOBIC PO SCH ×2 (08:28→21:28)
[2017-03-24] MEDS: PRINIVIL PO SCH (08:28)
[2017-03-24] MEDS: ESTRACE PO SCH (08:28)
[2017-03-24] MEDS: PREDNISONE PO SCH (08:29)
[2017-03-24] MEDS: FLONASE NAS SCH (08:29)
[2017-03-24] MEDS: INDERAL PO SCH ×2 (08:29→21:27)
[2017-03-24] MEDS: PEPCID IV SCH ×2 (08:29→21:26)
[2017-03-24] MEDS: KLOR-CON PO SCH ×2 (08:29→21:28)
[2017-03-24] MEDS: NORVASC PO SCH ×2 (08:29→21:27)
[2017-03-24] MEDS: LIDODERM TOP SCH (08:31)
[2017-03-24] MEDS ORDERED: KLOR-CON PO ONE (08:40)
[2017-03-24] MEDS: NORCO-7.5 PO PRN ×2 (10:08→19:51)
--- NOTE | 2017-03-24 16:11 | PROGRESS NOTE ---
DATE: 03/24/2017 SUBJECTIVE: The patient sitting up in a chair. She states that the chest tube is painful whenever she moves around, but otherwise she states that she is feeling a lot better. OBJECTIVE: Vital Signs: Temperature 97.5 degrees, blood pressure 158/74, heart rate 85, respirations 18, O2 saturations 95% on room air. General: This is an elderly female, sitting in a chair in no acute distress. Head: Normocephalic, atraumatic. Heart: S1, S2 normal. Regular rate and rhythm. Lungs: Equal air entry bilaterally. No crackles, no rales. Abdomen: Positive bowel sounds. Soft, nontender, nondistended. Extremities: No edema. No cyanosis. No calf tenderness. Neurologic: The patient is alert and oriented x3. LABS: White blood cell count 15, hemoglobin 13, hematocrit 39, platelets 325. Sodium 134, potassium 3.3, chloride 91, CO2 24, BUN 10, creatinine 0.6, glucose 88, calcium 8.5. ASSESSMENT AND PLAN: 1. Acute respiratory failure status post extubation. Resolved. 2. Right pneumothorax status post chest tube placement. Management as per the general surgeon. 3. Exploratory laparotomy with repair of a diaphragmatic hernia and partial omentectomy. The patient is tolerating a regular diet. Further management as per the general surgeon. 4. Hypertension, controlled. 5. History of Crohn disease, stable. 6. Hypokalemia. Will replace the patient's potassium. 7. Gastrointestinal prophylaxis. Continue on intravenous Protonix. 8. Deep vein thrombosis prophylaxis. Continue on heparin. 9. Continue with physical therapy. cc: MD Gabriel Toscano MD
[2017-03-24] MEDS: FLOVENT 110 MICROGM HFA INH SCH ×2 (16:16→20:00)
[2017-03-24] MEDS: MERREM 500 MG in NS 50 ML IV SCH ×2 (17:00→22:31)
[2017-03-24 17:48] LABS: MAGNESIUM 1.8 mg/dL (1.5-2.7); POTASSIUM 3.8 mmol/L (3.5-5.1)
[2017-03-24] MEDS: ELAVIL PO SCH (21:27)
[2017-03-24] MEDS: LEXAPRO PO SCH (21:27)
[2017-03-25] MEDS: DUONEB (A & A) INH SCH ×4 (03:20→21:00)
[2017-03-25] MEDS: NORCO-7.5 PO PRN ×5 (04:50→20:14)
[2017-03-25] MEDS: HEPARIN SUBQ SCH ×3 (04:50→20:09)
[2017-03-25] MEDS: APRESOLINE PO SCH ×3 (04:50→20:08)
[2017-03-25 06:33] LABS: MANUAL DIFF NEEDED? NO
[2017-03-25 06:45] LABS: BASO% 0.2 % (0.0-0.8); EOS# 0.12 X1000 (0.0-0.7); EOS% 0.9 % (0.0-10.0); HEMATOCRIT 33.5 % (37.0-47.0); HEMOGLOBIN 11.1 g/dL (12.0-16.0); IMM GRAN# 0.47 X1000 (0.0-0.04); IMM GRAN% 3.6 % (0.0-0.5); LYMPH# 3.92 X1000 (1.2-3.4); LYMPH% 29.9 % (20.5-51.1); MCH 29.3 PG (27-31); MCHC 33.1 g/dL (33-37); MCV 88.4 FL (81-99); MONO# 2.16 X1000 (0.11-0.59); MONO% 16.5 % (1.7-9.3); MPV 9.2 FL (7.4-10.4); NEUT% 48.9 % (42.2-75.2); PLT 527 X1000 (130-400); RBC 3.79 XMIL (4.2-5.4)
[2017-03-25 07:02] LABS: AGAP 13; BUN 9 mg/dL (8-22); CALCIUM 8.7 mg/dL (8.8-10.2); CHLORIDE 91 mmol/L (98-107); COSMO 262; MAGNESIUM 1.8 mg/dL (1.5-2.7); SODIUM 131 mmol/L (136-145); TCO2 27 mmol/L (25-35)
[2017-03-25] MEDS: DILAUDID IV PRN ×2 (07:32→15:25)
--- NOTE | 2017-03-25 08:00 | Diag Imaging Result Doc PS360 ---
EXAM: CHEST-PORTABLE INDICATION: pneumothorax TECHNIQUE: One view COMPARISON: 03/24/2017 FINDINGS: The right chest tube is in stable position. There is stable mild subcutaneous emphysema overlying the right chest wall. No definite residual pneumothorax can be identified I plain radiograph. There are no new consolidations. Cardiac silhouette is stable. IMPRESSION: Stable chest. Electronically signed by Genaro Georges 03/25/2017 7:58 AM
[2017-03-25] MEDS: MERREM 500 MG in NS 50 ML IV SCH ×2 (08:06→16:41)
[2017-03-25] MEDS: PEPCID IV SCH ×2 (08:12→20:08)
[2017-03-25] MEDS: FLONASE NAS SCH (08:14)
[2017-03-25] MEDS: PREDNISONE PO SCH (08:15)
[2017-03-25] MEDS: BIOTIN PO SCH ×3 (08:15→16:41)
[2017-03-25] MEDS: ESTRACE PO SCH (08:15)
[2017-03-25] MEDS: NORVASC PO SCH ×2 (08:16→20:08)
[2017-03-25] MEDS: CENTRUM SILVER PO SCH (08:16)
[2017-03-25] MEDS: MOBIC PO SCH ×2 (08:16→20:07)
[2017-03-25] MEDS: PERIDEX MT SCH ×2 (08:16→20:07)
[2017-03-25] MEDS: KLOR-CON PO SCH ×2 (08:16→20:09)
[2017-03-25] MEDS: PRINIVIL PO SCH (08:16)
[2017-03-25] MEDS: INDERAL PO SCH ×2 (08:16→20:07)
[2017-03-25] MEDS: FLOVENT 110 MICROGM HFA INH SCH ×3 (08:24→19:15)
--- NOTE | 2017-03-25 08:25 | PROGRESS NOTE ---
DATE: 03/25/2017 SUBJECTIVE: Ms. Liset Jang is a 71-year-old white female who on 03/20/2017 underwent reduction of a right-sided diaphragmatic hernia with primary repair and right chest tube placement per Dr. Anna. She continues to have a chest a right chest tube in place. Her abdomen is distended. She is not eating much of her diet. Her wound is dressed. OBJECTIVE: Her heart rate is 86, blood pressure 161/77, O2 saturation 96%. She has no work of breathing. She is voiding without a Barbour. She is afebrile, 98.2 degrees. She is still on IV antibiotics, which appears to be Merrem. Her white blood cell count has gone from 15.8 to 13.1. Hematocrit is 33%. Her electrolytes are within normal limits with a BUN of 9 and a creatinine of 0.5. A chest x-ray this morning shows the right chest tube in good position. There is no evidence of pneumothorax. There is no air leak involving the chest tube. I am not sure that it is still functional, but it has been on suction. PLAN: This weekend, we will look to get that chest tube out. We will try to increase her activity. cc: MD Gabriel Quiroz MD
[2017-03-25] MEDS: LIDODERM TOP SCH (09:18)
[2017-03-25] MEDS: MYLICON PO SCH ×5 (13:08→20:08)
--- NOTE | 2017-03-25 15:42 | PROGRESS NOTE ---
DATE: 03/25/2017 SUBJECTIVE: The patient is resting comfortably in bed. She does complain of gas pains but, otherwise, states that she feels okay today. OBJECTIVE: Vital Signs: Temperature 97.9 degrees, blood pressure 141/61, heart rate 80, respirations 17, O2 saturations 96% on room air. General: This is an elderly female, lying comfortably in bed, in no acute distress. Head: Normocephalic, atraumatic. Heart: S1, S2. Normal. Regular rate and rhythm. Lungs: Clear to auscultation bilaterally. Abdomen: Positive bowel sounds. Soft, nontender, nondistended. Extremities: No edema. No cyanosis. No calf tenderness. Neurologic: The patient is alert and oriented x3. LABORATORY DATA: White blood cell count 13, hemoglobin 11, hematocrit 33, platelets 527,000. Sodium 131, potassium 4, chloride 91, CO2 of 27. BUN 9, creatinine 0.5, glucose 106. Calcium 8.7. ASSESSMENT AND PLAN: 1. Acute respiratory failure, status post extubation, resolved. 2. Right pneumothorax, status post chest tube placement. Management as per General Surgeon. 3. Exploratory laparotomy with repair of a diaphragmatic hernia and partial omentectomy. Management as per the General Surgeon. 4. History of Crohn's disease. The patient is currently on chronic steroid therapy. 5. Hypertension, controlled. 6. Gastrointestinal prophylaxis. Continue on IV Protonix. 7. Deep vein thrombosis prophylaxis. Continue on heparin. 8. Continue with physical therapy. cc: MD Gabriel Toscano MD
[2017-03-25] MEDS: ELAVIL PO SCH (20:07)
[2017-03-25] MEDS: LEXAPRO PO SCH (20:08)
[2017-03-26] MEDS: NORCO-7.5 PO PRN ×6 (00:20→22:39)
[2017-03-26] MEDS: MERREM 500 MG in NS 50 ML IV SCH (00:20)
[2017-03-26] MEDS: DUONEB (A & A) INH SCH ×3 (03:14→17:11)
[2017-03-26] MEDS: DILAUDID IV PRN ×3 (04:10→21:17)
[2017-03-26] MEDS: APRESOLINE PO SCH ×4 (04:21→22:43)
[2017-03-26] MEDS: HEPARIN SUBQ SCH ×3 (04:21→19:41)
[2017-03-26 06:11] LABS: MANUAL DIFF NEEDED? NO
[2017-03-26 06:26] LABS: BASO% 0.3 % (0.0-0.8); EOS# 0.11 X1000 (0.0-0.7); EOS% 0.7 % (0.0-10.0); HEMATOCRIT 33.8 % (37.0-47.0); HEMOGLOBIN 11.3 g/dL (12.0-16.0); IMM GRAN# 0.58 X1000 (0.0-0.04); IMM GRAN% 3.8 % (0.0-0.5); LYMPH# 4.58 X1000 (1.2-3.4); LYMPH% 29.8 % (20.5-51.1); MCH 30.3 PG (27-31); MCHC 33.4 g/dL (33-37); MCV 90.6 FL (81-99); MONO# 2.48 X1000 (0.11-0.59); MONO% 16.1 % (1.7-9.3); MPV 9.4 FL (7.4-10.4); NEUT% 49.3 % (42.2-75.2); PLT 526 X1000 (130-400); RBC 3.73 XMIL (4.2-5.4)
[2017-03-26 07:09] LABS: AGAP 14; BUN 9 mg/dL (8-22); CALCIUM 8.9 mg/dL (8.8-10.2); CHLORIDE 91 mmol/L (98-107); COSMO 261; SODIUM 131 mmol/L (136-145); TCO2 26 mmol/L (25-35)
[2017-03-26] MEDS ORDERED: SAMSCA PO ONE (07:14)
[2017-03-26] MEDS: NORVASC PO SCH ×3 (08:10→22:44)
[2017-03-26] MEDS: ZOSYN 3.375 GM/NS 3.375 GM/50 ML IVPB IV SCH ×3 (08:10→19:41)
[2017-03-26] MEDS: PERIDEX MT SCH ×3 (08:11→22:43)
[2017-03-26] MEDS: PREDNISONE PO SCH (08:11)
[2017-03-26] MEDS: KLOR-CON PO SCH ×3 (08:11→22:44)
[2017-03-26] MEDS: MYLICON PO SCH ×4 (08:11→22:44)
[2017-03-26] MEDS: INDERAL PO SCH ×2 (08:12→22:45)
[2017-03-26] MEDS: MOBIC PO SCH ×3 (08:12→22:44)
[2017-03-26] MEDS: PRINIVIL PO SCH (08:12)
[2017-03-26] MEDS: LIDODERM TOP SCH (08:12)
[2017-03-26] MEDS: CENTRUM SILVER PO SCH (08:12)
[2017-03-26] MEDS: BIOTIN PO SCH ×3 (08:12→17:07)
[2017-03-26] MEDS: ESTRACE PO SCH (08:12)
[2017-03-26] MEDS: PEPCID IV SCH ×3 (08:13→22:44)
[2017-03-26] MEDS: FLOVENT 110 MICROGM HFA INH SCH ×2 (09:13→19:55)
[2017-03-26] MEDS: FLONASE NAS SCH (09:18)
--- NOTE | 2017-03-26 10:22 | PROGRESS NOTE ---
DATE: 03/26/2017 DATE: 03/26/2017. SUBJECTIVE: Ms. Liset Jang is now postoperative day 6 from a right-sided diaphragmatic hernia repair per Dr. Anna. OBJECTIVE: Her abdomen continues to be distended. She still has a right-sided chest tube in place. She is awake and cooperative. She is taking some of a full liquid diet. Her white blood cell count has been increasing from 13-15. Hematocrit is 34%. Her heart rate is 83 blood pressure 139/69. O2 saturation 97%. She is voiding without Barbour. There does not appear to be any air leak involving her chest tube. O2 saturation 97%. She has an abdominal binder in place. She is receiving IV Zosyn. It must be noted that she is getting steroids and if we have difficulty removing her chest tube, we need to think about discontinuing that. PLAN: I took her chest tube off suction. We will repeat a chest x-ray in hopes to be able to remove this chest tube. We will advance her diet as tolerated. cc: MD Gabriel Quiroz MD
--- NOTE | 2017-03-26 17:15 | PROGRESS NOTE ---
DATE: 03/26/2017 SUBJECTIVE: The complains of gas pain but otherwise states that she is doing fine. OBJECTIVE: Vital Signs: Temperature 98.3 degrees, blood pressure 127/81, heart rate 81, respirations 16, O2 saturations 94% on room air. General: This is an elderly female sitting in a chair in no acute distress. Head: Normocephalic, atraumatic. Heart: S1, S2. Normal. Regular rate and rhythm. Lungs: Clear to auscultation bilaterally. No wheezing. No rales. No rhonchi. Abdomen: Positive bowel sounds. Soft, nontender, nondistended. Extremities: No edema. No cyanosis. No calf tenderness. Neurologic: The patient is alert, oriented x3. LABS: White blood cell count 15, hemoglobin 11, hematocrit 33, platelets 526, 000. Sodium 131, potassium 4, chloride 91, CO2 26, BUN 9, creatinine 0.5. ASSESSMENT AND PLAN: 1. Right pneumothorax status post chest tube placement. Management as per the general surgeon. 2. Exploratory laparoscopy with repair of diaphragmatic hernia and partial omentectomy. Stable. 3. Leukocytosis. The patient has been on steroid therapy throughout the hospitalization. Will discontinue the prednisone at this time. The patient states that she was only on it for respiratory issue prior to admission. 4. Hypertension. Controlled. 5. Gastrointestinal prophylaxis. Continue on IV Protonix. 6. Deep vein thrombosis prophylaxis. Continue on heparin. 7. Continue with physical therapy. cc: MD Gabriel Toscano MD MTDD
[2017-03-26] MEDS: ELAVIL PO SCH ×2 (19:42→22:45)
[2017-03-26] MEDS: LEXAPRO PO SCH ×2 (19:42→22:44)
[2017-03-27] MEDS: ZOSYN 3.375 GM/NS 3.375 GM/50 ML IVPB IV SCH ×4 (01:30→21:05)
[2017-03-27] MEDS: DILAUDID IV PRN ×4 (02:22→21:02)
[2017-03-27] MEDS: DUONEB (A & A) INH SCH ×6 (03:00→21:12)
[2017-03-27] MEDS: NORCO-7.5 PO PRN ×5 (03:20→22:17)
[2017-03-27] MEDS: HEPARIN SUBQ SCH ×3 (03:20→21:05)
[2017-03-27] MEDS: APRESOLINE PO SCH ×3 (05:18→21:04)
--- NOTE | 2017-03-27 06:06 | PROGRESS NOTE ---
DATE: 03/27/2017 SUBJECTIVE: Patient doing okay. No major issues. Reviewed notes from the weekend. OBJECTIVE: Vital Signs: Patient is currently afebrile. Her vital signs are stable. General: No acute distress. Cardiovascular: Regular rate and rhythm. Lungs: Grossly clear. Abdomen: Soft. Some distention, appropriately tender. Dressing in place. DIAGNOSTIC: Chest x-ray is pending. Labs are pending. ASSESSMENT/PLAN: A 71-year-old female, status post repair of incarcerated strangulated diaphragmatic hernia on the right. 1. Postoperative state. At this time, patient's chest tube is still water sealed. Her chest x- ray yesterday was improving. There was no pneumothorax, and follow up with this morning's chest x-ray, potentially pull her chest tube. Overall, she is tolerating her diet. She seems distended but she says she is normally like this. We will need to monitor her closely. May need some laxatives. 2. History of Crohn's. At this time we will defer to Gastroenterology. 3. Multiple medical comorbidities currently being managed by the hospitalist service. cc: Gabriel Anna MD
[2017-03-27 06:19] LABS: MANUAL DIFF NEEDED? NO
[2017-03-27 06:35] LABS: BASO% 0.2 % (0.0-0.8); EOS# 0.07 X1000 (0.0-0.7); EOS% 0.4 % (0.0-10.0); HEMATOCRIT 33.6 % (37.0-47.0); HEMOGLOBIN 11.3 g/dL (12.0-16.0); IMM GRAN# 0.62 X1000 (0.0-0.04); IMM GRAN% 3.7 % (0.0-0.5); LYMPH# 4.12 X1000 (1.2-3.4); LYMPH% 24.4 % (20.5-51.1); MCH 30.8 PG (27-31); MCHC 33.6 g/dL (33-37); MCV 91.6 FL (81-99); MONO# 2.75 X1000 (0.11-0.59); MONO% 16.3 % (1.7-9.3); PLT 544 X1000 (130-400); RBC 3.67 XMIL (4.2-5.4)
[2017-03-27 07:14] LABS: AGAP 13; BUN 14 mg/dL (8-22); CALCIUM 9.5 mg/dL (8.8-10.2); CHLORIDE 95 mmol/L (98-107); COSMO 270; POTASSIUM 4.9 mmol/L (3.5-5.1); SODIUM 135 mmol/L (136-145); TCO2 27 mmol/L (25-35)
--- NOTE | 2017-03-27 07:26 | Diag Imaging Result Doc PS360 ---
CHEST-1 VIEW - 03/27/2017 INDICATION: right chest tube TECHNIQUE: COMPARISON: 03/25/2017 FINDINGS: Stable right chest tube. Stable minimal soft tissue gas along the right chest wall. Stable linear opacity at the right lung base suggesting atelectasis. No significant infiltrates. No pneumothorax or large effusion. Heart size remains stable. IMPRESSION: No complication or change from prior. Electronically signed by Dionisio Lorenz 03/27/2017 7:23 AM
[2017-03-27] MEDS: PEPCID IV SCH ×3 (07:49→21:05)
[2017-03-27] MEDS: ESTRACE PO SCH ×2 (07:55→11:21)
[2017-03-27] MEDS: MYLICON PO SCH ×5 (07:55→21:05)
[2017-03-27] MEDS: INDERAL PO SCH ×3 (07:55→21:04)
[2017-03-27] MEDS: PERIDEX MT SCH ×3 (07:55→21:05)
[2017-03-27] MEDS: CENTRUM SILVER PO SCH ×2 (07:56→11:20)
[2017-03-27] MEDS: KLOR-CON PO SCH ×3 (07:56→21:04)
[2017-03-27] MEDS: PRINIVIL PO SCH ×2 (07:56→08:01)
[2017-03-27] MEDS: NORVASC PO SCH ×3 (07:56→21:05)
[2017-03-27] MEDS: FLONASE NAS SCH ×2 (07:57→11:20)
[2017-03-27] MEDS: BIOTIN PO SCH ×4 (07:57→17:26)
[2017-03-27] MEDS: MOBIC PO SCH ×2 (08:02→21:04)
[2017-03-27] MEDS: FLOVENT 110 MICROGM HFA INH SCH ×2 (11:41→20:00)
--- NOTE | 2017-03-27 13:03 | PROGRESS NOTE ---
DATE: 03/27/2017 SUBJECTIVE: The patient is resting comfortably in bed. She has no complaints at this time. No acute events noted overnight. OBJECTIVE: Vital Signs: Temperature 97 degrees, blood pressure 135/65, heart rate 65, respirations 18, O2 saturations 98% on 2 L nasal cannula. General: This is an elderly female, sitting up in bed in no acute distress. HEENT: Head normocephalic, atraumatic. Heart: S1, S2. Normal. Regular rate and rhythm. Lungs: Clear to auscultation bilaterally. Abdomen: Positive bowel sounds. Soft, nontender, nondistended. Extremities: No edema. No cyanosis. No calf tenderness. Neurologic: The patient is alert oriented x3. LABS: White blood cell count 16, hemoglobin 11, hematocrit 33, platelets 544,000, potassium 4.9, sodium 135, BUN 14, creatinine 0.8. ASSESSMENT AND PLAN: 1. Right pneumothorax status post chest tube placement. Management as per the general surgeon. 2. Exploratory laparotomy secondary to strangulated diaphragmatic hernia,status post repair with partial pmentectomy, stable. 3. Leukocytosis. The patient's prednisone was discontinued yesterday. We will continue to monitor the trend. The patient is currently on Zosyn. 4. Chronic disease. Stable. 5. Hypertension. Controlled. 6. Gastrointestinal prophylaxis. Continue on IV Protonix. 7. Deep vein thrombosis prophylaxis. Continue on heparin. 8. Continue with physical therapy. cc: MD Gabriel Toscano MD
[2017-03-27] MEDS: LIDODERM TOP SCH (16:06)
[2017-03-27] MEDS: ELAVIL PO SCH (21:04)
[2017-03-27] MEDS: LEXAPRO PO SCH (21:04)
[2017-03-28] MEDS: ZOSYN 3.375 GM/NS 3.375 GM/50 ML IVPB IV SCH ×4 (01:46→20:23)
[2017-03-28] MEDS: DILAUDID IV PRN ×5 (01:46→20:22)
[2017-03-28] MEDS: DUONEB (A & A) INH SCH ×4 (03:46→21:00)
[2017-03-28] MEDS: HEPARIN SUBQ SCH ×3 (04:10→20:26)
[2017-03-28] MEDS: APRESOLINE PO SCH ×4 (04:11→20:24)
[2017-03-28] MEDS: NORCO-7.5 PO PRN ×4 (04:22→18:37)
[2017-03-28 06:19] LABS: MANUAL DIFF NEEDED? NO
[2017-03-28 06:30] LABS: BASO% 0.4 % (0.0-0.8); EOS% 3.9 % (0.0-10.0); HEMATOCRIT 35.5 % (37.0-47.0); HEMOGLOBIN 11.6 g/dL (12.0-16.0); IMM GRAN# 0.59 X1000 (0.0-0.04); IMM GRAN% 3.9 % (0.0-0.5); LYMPH# 5.52 X1000 (1.2-3.4); LYMPH% 36.3 % (20.5-51.1); MCH 29.8 PG (27-31); MCHC 32.7 g/dL (33-37); MCV 91.3 FL (81-99); MONO% 13.1 % (1.7-9.3); MPV 9.5 FL (7.4-10.4); NEUT% 42.4 % (42.2-75.2); PLT 594 X1000 (130-400); RBC 3.89 XMIL (4.2-5.4)
[2017-03-28 06:59] LABS: AGAP 15; BUN 14 mg/dL (8-22); CHLORIDE 93 mmol/L (98-107); COSMO 266; POTASSIUM 4.4 mmol/L (3.5-5.1); SODIUM 133 mmol/L (136-145); TCO2 25 mmol/L (25-35)
--- NOTE | 2017-03-28 07:33 | Diag Imaging Result Doc PS360 ---
EXAM: CHEST-PORTABLE INDICATION: Follow up pneumothorax TECHNIQUE: One view COMPARISON: 03/27/2017 FINDINGS: Right chest tube is in stable position. No significant residual pneumothorax is appreciated. There is still trace subcutaneous gas overlying the right chest wall. Mild atelectasis at the right lower lung zone is unchanged. There are no new consolidations. Cardiac silhouette is stable. IMPRESSION: Essentially stable chest. Electronically signed by Genaro Georges 03/28/2017 7:31 AM
--- NOTE | 2017-03-28 08:15 | PROGRESS NOTE ---
DATE: 03/28/2017 SUBJECTIVE: Patient doing okay. The patient's respiratory status is essentially stable. OBJECTIVE: Vital Signs: Patient is currently afebrile. Her vital signs are stable. General: No acute distress. Resting comfortably. Cardiovascular: Regular rate and rhythm. Lungs: Grossly clear. Abdomen soft, nondistended, appropriately tender. Chest x-ray is pending. ASSESSMENT AND PLAN: A 71-year-old female status post repair of right diaphragmatic hernia. 1. Postoperative state at this time: The patient's chest tube is to water seal. We will follow up with this morning's chest x-ray. If stable, may potentially consider pulling her chest tube. She is tolerating her diet. We will continue to monitor. 2. History of Crohn's. We will defer to gastroenterology. 3. Multiple medical comorbidities currently being managed by the hospitalist service. cc: Gabriel Anna MD
[2017-03-28] MEDS: PERIDEX MT SCH ×2 (09:12→20:24)
[2017-03-28] MEDS: PEPCID IV SCH ×2 (09:13→20:24)
[2017-03-28] MEDS: NORVASC PO SCH ×2 (09:13→20:26)
[2017-03-28] MEDS: MYLICON PO SCH ×4 (09:13→20:26)
[2017-03-28] MEDS: MOBIC PO SCH ×2 (09:13→20:26)
[2017-03-28] MEDS: PRINIVIL PO SCH (09:13)
[2017-03-28] MEDS: INDERAL PO SCH ×2 (09:13→20:24)
[2017-03-28] MEDS: ESTRACE PO SCH (09:13)
[2017-03-28] MEDS: KLOR-CON PO SCH ×2 (09:13→20:25)
[2017-03-28] MEDS: CENTRUM SILVER PO SCH (09:13)
[2017-03-28] MEDS: FLONASE NAS SCH (09:14)
[2017-03-28] MEDS: BIOTIN PO SCH ×3 (09:15→17:48)
[2017-03-28] MEDS: FLOVENT 110 MICROGM HFA INH SCH ×2 (09:42→19:05)
[2017-03-28] MEDS: LIDODERM TOP SCH (12:06)
--- NOTE | 2017-03-28 12:49 | PROGRESS NOTE ---
DATE: 03/28/2017 SUBJECTIVE: Patient is resting comfortably in bed. No complaints. Eating okay. No fever or chills. No acute issues, as per nursing, overnight. OBJECTIVE: Vital Signs: Temperature 97.6 degrees, heart rate 66, respiratory rate 16, blood pressure 123/62, and O2 saturation 96% on 2L nasal cannula. General: This is a 71-year-old female lying in bed in no acute distress. HEENT: Head is normocephalic and atraumatic. Anicteric sclerae and pale conjunctivae. Mucous membranes moist. Neck: Supple. No JVD noted. No carotid bruits. No lymphadenopathy. No thyromegaly. Cardiovascular: S1 and S2 heard. No murmurs, gallops, or rubs. Regular rate and rhythm. Respiratory: Clear bilaterally to auscultation. Decreased breath sounds in the right lung. Patient is not using any accessory muscles or having work of breathing. Abdomen: Soft, nontender to palpation. Bowel sounds present. No organomegaly. Extremities: No clubbing, cyanosis, or edema. Peripheral pulses present in both legs. Neurological: Patient is alert and oriented x3. Moves all 4 extremities. LABORATORY DATA: Reviewed. ASSESSMENT AND PLAN: 1. Right pneumothorax, status post chest tube placement. Dr. Anna from General Surgery is following this patient. Apparently they are planning to check a chest x-ray and, if everything looks fine, they are planning to pull out the tube. We will follow his recommendations. 2. Exploratory laparotomy secondary to strangulated diaphragmatic hernia, status post repair. Stable. General Surgery is following. 3. Leukocytosis is getting better after prednisone was discontinued. We will continue checking CBC daily. 4. Hypertension. Blood pressure is under control. We will continue with the same management. 5. Gastrointestinal prophylaxis. We will continue with Protonix. 6. Deep vein thrombosis prophylaxis. We will continue with heparin. 7. Physical deconditioning. Physical Therapy is working with this patient. cc: MD Gabriel Singh MD
--- NOTE | 2017-03-28 13:47 | Diag Imaging Result Doc PS360 ---
EXAM: CHEST-PORTABLE INDICATION: pulled chest tube TECHNIQUE: One view COMPARISON: 03/28/2017 FINDINGS: There has been interval removal of the right chest tube. No residual pneumothorax is identified after removal. There is residual atelectasis at the right lung base. There are no new consolidations. Cardiac silhouette is stable. IMPRESSION: Interval removal of the right chest tube as described with no definite residual pneumothorax identified after removal. Electronically signed by Genaro Georges 03/28/2017 1:44 PM
--- NOTE | 2017-03-28 15:55 | Diag Imaging Result Doc PS360 ---
EXAM: CHEST-PORTABLE INDICATION: REMOVED CHEST TUBES TECHNIQUE: One view COMPARISON: 03/28/2017 FINDINGS: Atelectasis at the right lung base is unchanged. There is still no pneumothorax identified by plain radiograph. There are no new consolidations identified. Cardiac silhouette is stable. IMPRESSION: Stable chest. Electronically signed by Genaro Georges 03/28/2017 3:53 PM
[2017-03-28] MEDS ORDERED: LIDODERM TOP SCH (20:00)
[2017-03-28] MEDS: ELAVIL PO SCH (20:25)
[2017-03-28] MEDS: LEXAPRO PO SCH (20:26)
[2017-03-29] MEDS: ZOSYN 3.375 GM/NS 3.375 GM/50 ML IVPB IV SCH ×2 (01:02→08:10)
[2017-03-29] MEDS: NORCO-7.5 PO PRN ×4 (01:03→14:47)
[2017-03-29] MEDS: DUONEB (A & A) INH SCH ×2 (03:20→11:12)
[2017-03-29] MEDS: VITAMIN D PO SCH ×2 (04:53→05:32)
[2017-03-29] MEDS: HEPARIN SUBQ SCH ×2 (04:54→12:56)
[2017-03-29] MEDS: DILAUDID IV PRN (04:54)
[2017-03-29] MEDS: APRESOLINE PO SCH ×2 (04:56→12:55)
[2017-03-29 05:53] LABS: MANUAL DIFF NEEDED? NO
[2017-03-29 06:06] LABS: BASO% 0.2 % (0.0-0.8); EOS# 0.69 X1000 (0.0-0.7); EOS% 5.7 % (0.0-10.0); HEMATOCRIT 31.9 % (37.0-47.0); HEMOGLOBIN 10.6 g/dL (12.0-16.0); IMM GRAN# 0.27 X1000 (0.0-0.04); IMM GRAN% 2.2 % (0.0-0.5); LYMPH# 3.36 X1000 (1.2-3.4); LYMPH% 27.7 % (20.5-51.1); MCH 30.6 PG (27-31); MCHC 33.2 g/dL (33-37); MCV 92.2 FL (81-99); MONO# 1.67 X1000 (0.11-0.59); MONO% 13.7 % (1.7-9.3); MPV 9.6 FL (7.4-10.4); NEUT% 50.5 % (42.2-75.2); PLT 493 X1000 (130-400); RBC 3.46 XMIL (4.2-5.4)
[2017-03-29 06:23] LABS: AGAP 13; BUN 12 mg/dL (8-22); CALCIUM 8.4 mg/dL (8.8-10.2); CHLORIDE 95 mmol/L (98-107); COSMO 266; POTASSIUM 4.4 mmol/L (3.5-5.1); SODIUM 133 mmol/L (136-145); TCO2 25 mmol/L (25-35)
--- NOTE | 2017-03-29 06:30 | PROGRESS NOTE ---
DATE: 03/29/2017 SUBJECTIVE: Patient doing well. Had her chest to removed. Chest x-ray post removal did not show pneumothorax. She is doing well. Tolerating a diet and having bowel movements. OBJECTIVE: Vital Signs: Patient is currently afebrile. Her vital signs are stable. General: No acute distress. Resting comfortably. Cardiovascular: Regular rate and rhythm. Lungs: Grossly clear. Abdomen: Soft. Nondistended. Nontender. Incision healing well. DATA: Chest x-ray from yesterday reviewed. ASSESSMENT AND PLAN: A 71-year-old female, status post repair of right diaphragmatic hernia. 1. Postoperative state. At this time, patient's chest tube is out. Her lungs still completely inflated and from my point of view, she can be discharged to [facility] for a swing bed and potential further evaluation. 2. History of Crohn's. We will defer to Gastroenterology. 3. Multiple medical comorbidities. Currently being managed by the hospitalist service. Once arrangements can be made from a surgery point of view, she can be discharged and transferred. cc: Gabriel Anna MD
[2017-03-29] MEDS: FLONASE NAS SCH (08:10)
[2017-03-29] MEDS: ESTRACE PO SCH (08:11)
[2017-03-29] MEDS: NORVASC PO SCH (08:11)
[2017-03-29] MEDS: INDERAL PO SCH (08:11)
[2017-03-29] MEDS: PEPCID IV SCH (08:11)
[2017-03-29] MEDS: PERIDEX MT SCH (08:11)
[2017-03-29] MEDS: KLOR-CON PO SCH (08:11)
[2017-03-29] MEDS: PRINIVIL PO SCH (08:11)
[2017-03-29] MEDS: MOBIC PO SCH (08:12)
[2017-03-29] MEDS: CENTRUM SILVER PO SCH (08:12)
[2017-03-29] MEDS: MYLICON PO SCH ×2 (08:12→12:55)
[2017-03-29] MEDS: BIOTIN PO SCH (08:13)
[2017-03-29] MEDS: FLOVENT 110 MICROGM HFA INH SCH (11:13)
--- NOTE | 2017-03-29 12:33 | DISCHARGE SUMMARY ---
ADMISSION DATE: 03/19/2017 DISCHARGE DATE: 03/29/2017 DISCHARGE DIAGNOSES: 1. Incarcerated diaphragmatic hernia, status post surgical repair. 2. Pleural effusion, status post chest tube placement. 3. Acute respiratory failure on ventilator. 4. Reactive leukocytosis secondary to steroids. 5. Hypokalemia/hypophosphatemia, improved. 6. History of Crohn's disease. 7. Anxiety. 8. Depression. PROCEDURES: 1. Exploratory laparotomy with reduction of diaphragmatic hernia, colorrhaphy, and primary repair of the diaphragmatic hernia with partial omentectomy performed by Dr. Anna. 2. Placement of chest tube done by Dr. Anna. HOSPITAL COURSE: This is a 71-year-old female with past medical history of hypertension, Crohn's disease, chronic pain, and insomnia who was transferred from [facility] with multiple days of abdominal pain and, ultimately, they found an incarcerated diaphragmatic hernia. This patient was transferred to our facility for surgical treatment. Dr. Anna performed exploratory laparotomy with colorrhaphy early this morning. The patient was intubated. We were asked to follow this patient for medical management. The patient remained with chest tube until today. Dr. Anna was following this patient on a daily basis. For anxiety and chronic pain, we have restarted home medications. For Crohn's disease, it did not seem like this patient had a Crohn's disease flare-up. Hypertension has been controlled with home medications. She was on chronic steroid use; because of the white cell count that was high, we decided to taper it off slowly. Today, Dr. Anna decided to remove the tube out. From his standpoint, the patient is good to go, so we are transferring this patient back to [facility] where they have a rehab facility there. The patient is supposed to see Dr. Anna in the office in a couple of weeks. DISCHARGE PHYSICAL EXAMINATION: Vital Signs: Temperature 97.9 degrees, heart rate 69, respiratory rate 16, blood pressure 129/69. O2 saturation 97% on 2 L nasal cannula. General: This is a 71-year-old female lying in bed in no acute distress. HEENT: Head is normocephalic and atraumatic. Anicteric sclerae and pale conjunctivae. Mucous membranes moist. Neck: Supple. No JVD noted. No carotid bruits. No lymphadenopathy. No thyromegaly. Cardiovascular: S1, S2 heard. No murmurs, gallops, or rubs. Regular rate and rhythm. Respiratory: Clear bilaterally to auscultation. Minimal decreased breath sounds in the right side. Abdomen: Soft, nontender to palpation. Bowel sounds present. No organomegaly. Extremities: No clubbing, cyanosis, or edema. Peripheral pulses present in both legs. Neurologic: Patient alert and oriented x3. Moves 4 extremities. DISCHARGE DISPOSITION: The patient is going back to the rehab facility in [place]. DISCHARGE MEDICATIONS: 1. Amlodipine 5 mg 1 tablet p.o. b.i.d. 2. Hydralazine 25 mg 1 tablet p.o. 3 times per day. 3. [place] 7.5 mg 1 tablet p.o. daily. 4. 1 capsule every 4 hours as needed. 5. Propranolol 10 mg p.o. twice daily. 6. Zyrtec 10 mg p.o. as needed. 7. Citalopram 10 mg 1 tablet p.o. daily. 8. Meclizine 12.5 mg p.o. 2 times per day. 9. Docusate 100 mg p.o. b.i.d. 10. Flonase as indicated. 11. Lisinopril 10 mg 1 tablet p.o. daily. 12. Lactate 1 tablet p.o. as needed. 13. Flovent 2 inhalations twice daily. 14. Acetaminophen 650 1 tablet p.o. every 6 hours as needed for pain. 15. calciferol 15 units weekly. 16. Amitriptyline 100 mg at bedtime. cc: MD Gabriel Singh MD
[2017-03-29 15:34] VITALS: BP 131/64
== END 2017-03-29 16:30 ==
LOC: DIRADM 17:28 → SUATTDRO 17:28 → 4N 20:21 → ICU 03-20 01:45 → 4N 03-21 16:36 → UNDODISIN 03-29 13:45
PROVIDERS: ADMIT Surgery; ATTEND Internal Medicine